=== PATIENT | female | born 1950 | race African-American/Black ===

== ENCOUNTER 2017-08-08 23:08 | Emergency (ER) | payer OTHER ==
[~2017-08-08] VITALS: Ht 162.6 cm; Wt 82.6 kg
[2017-08-08] MEDS ORDERED: ENALAPRIL MALEA10 MG ORAL (23:19)
[2017-08-08] MEDS ORDERED: METFORMIN HCL850 M1 ORAL (23:19)
[2017-08-08] MEDS ORDERED: PAXIL10 MG ORAL (23:20)
[2017-08-08 23:22] VITALS: BP 133/72
[2017-08-09] MEDS ORDERED: Ketorolac 30mg Inj IV ONE (00:15)
[2017-08-09 00:46] LABS: EOSINOPHILS % (AUTO) 1.8 % (0.0-3.0); LYMPHOCYTES % (AUTO) 14.4 % (20.0-45.0); MEAN CORPUSCULAR HEMOGLOBIN 29.9 PG (27.0-31.0); MEAN CORPUSCULAR HGB CONC 33.6 G/DL (32.0-36.0); MEAN CORPUSCULAR VOLUME 89 FL (80-99); MONOCYTES % (AUTO) 6.3 % (1.0-10.0); NEUTROPHILS % (AUTO) 76.5 % (45.0-75.0); PLATELET COUNT 337 K/UL (150-450); RED BLOOD COUNT 4.08 M/UL (4.20-5.40); RED CELL DISTRIBUTION WIDTH 12.4 % (11.6-14.8); WHITE BLOOD COUNT 11.2 K/UL (4.8-10.8)
[2017-08-09 00:54] LABS: ANION GAP 9 mmol/L (5-15); CARBON DIOXIDE 29 MMOL/L (21-32); CHLORIDE 94 MMOL/L (98-107); GLOMERULAR FILTRATION RATE > 60 mL/min (>60); POTASSIUM 4.3 MMOL/L (3.5-5.1); SODIUM 132 MMOL/L (136-145)
[2017-08-09 01:09] LABS: ALANINE AMINOTRANSFERASE 22 U/L (12-78); ALBUMIN/GLOBULIN RATIO 0.8 (1.0-2.7); ASPARTATE AMINO TRANSFERASE 25 U/L (15-37); CKMB < 0.5 NG/ML (0.0-3.6); TOTAL PROTEIN 8.3 G/DL (6.4-8.2)
[2017-08-09] MEDS ORDERED: ALBUTEROL2.5 MG/3 M HHN (01:10)
[2017-08-09] MEDS ORDERED: ACETAMINOPHEN-1 EAC1 ORAL (01:10)
[2017-08-09] MEDS ORDERED: ZITHROMAX250 MG ORAL (01:10)
[2017-08-09 01:18] VITALS: BP_SYST 133; BP_SYST 149; BP_DIAS 72; BP_DIAS 79
--- NOTE | 2017-08-10 15:11 | Emergency Room Report ---
History of Present Illness General Chief Complaint: Upper Respiratory Illness Source: Patient Present Illness HPI [id number] sent from urgent care "because my HR and BP were high and they couldnt bring it down." Patient with known "tough to control" BP on multiple medications Was at originally for 2-3 weeks of body aches, cough, headache, sore throat , nasal congestion and rhinorrhea Did not get the flu vaccine this week Had ECG done at which shows sinus tachycardia to 117 Patient denies chest pain, SOB, history of PE or ACS Allergies: Coded Allergies: No Known Allergies (Unverified , 08/08/17) Patient History Past Medical History: DM, HTN Past Surgical History: none Pertinent Family History: none Social History: Denies: smoking, alcohol use, drug use Now: No Immunizations: UTD Reviewed Nursing Documentation: PMH: Agreed, PSxH: Agreed Nursing Documentation-PMH Hx Hypertension: Yes Hx Diabetes: Yes Review of Systems All Other Systems: negative except mentioned in HPI Physical Exam Vital Signs Date Time Temp Pulse Resp B/P (MAP) Pulse Ox O2 Delivery O2 Flow Rate FiO2 08/08/17 23:13 98.6 122 14 133/72 100 Room Air Sp02 EP Interpretation: reviewed, normal General Appearance: normal inspection, well appearing, no apparent distress, alert, GCS 15, non-toxic Head: normocephalic, atraumatic Eyes: bilateral eye PERRL, bilateral eye EOMI ENT: normal ENT inspection, hearing grossly normal, normal pharynx, no angioedema, normal voice, TMs + canals normal, uvula midline, moist mucus membranes, nasal congestion, pharyngeal erythema Neck: normal inspection, full range of motion, supple, thyroid normal, no meningismus, no bony tend Respiratory: normal inspection, lungs clear, normal breath sounds, no rhonchi, no respiratory distress, no retraction, no accessory muscle use, no wheezing, speaking full sentences Cardiovascular #1: regular rate, rhythm, no edema, no JVD, normal capillary refill Gastrointestinal: normal inspection, normal bowel sounds, non tender, soft, no mass, no peritonitis, non-distended, no guarding, no hernia, no pulsatile mass Genitourinary: no CVA tenderness Musculoskeletal: normal inspection, back normal, normal range of motion, no calf tenderness, pelvis stable, Pinky's Sign negative Neurologic: normal inspection, alert, oriented x3, responsive, extrusion bender III-XII nml as tested, motor strength/tone normal, cerebellar normal, normal gait, speech normal Psychiatric: normal inspection, judgement/insight normal, mood/affect normal, no suicidal/homicidal ideation, no delusions Skin: normal inspection, normal color, no rash Lymphatic: normal inspection, no adenopathy Medical Decision Making Diagnostic Impression: Primary Impression: Upper respiratory infection Qualified Codes: J06.9 - Acute upper respiratory infection, unspecified Additional Impression: Hypertension Qualified Codes: I10 - Essential (primary) hypertension ER Course Patient has all the symptoms of a viral URI, possibly flu However is well appearing - symptoms have been ongoing for 2-3 weeks She just sought medical attention today Labs unremarkabke - mild leuks likely viral Pharynx with erythema likely from nasal congestion - no sign of bacterial strep Lungs CTAB ECG here also sinus tachycardia but troponin WNL BP is within normal limits here HR better with IVF, pain control ER course: Patient has remained stable during ED stay. Patient is to be discharged to home. Patient is instructed to follow up with their primary care doctor within 5 days. Patient is instructed to follow up with *specialist within 3 days. Strict return precautions discussed with patient such as fever, chills, worsening/severe pain, nausea, vomiting, which may indicate severe illness. Patient verbalizes understanding and agrees with plan. Please note that this Emergency Department Report was dictated using [email or web address] power unit operator technology software, occasionally this can lead to erroneous entry secondary to interpretation by the dictation equipment Last Vital Signs Date Time Temp Pulse Resp B/P (MAP) Pulse Ox O2 Delivery O2 Flow Rate FiO2 08/09/17 01:18 98.6 113 14 149/79 100 Room Air Status: improved Disposition: HOME, SELF-CARE Condition: Improved Scripts Albuterol Sulfate* (ALBUTEROL SULFATE HHN*) 2.5 Mg/3 Ml Vial.neb 2.5 MG HHN Q4H Y for cough, SOB, #25 VIAL Prov: REUBEN WEBB M.D. 08/09/17 Acetaminophen With Codeine (T#3) (TYLENOL #3 TAB*) Y Tab 1 TAB ORAL Q8H for 7 Days, #30 TAB Prov: REUBEN WEBB M.D. 08/09/17 Azithromycin* (ZITHROMAX*) 250 Mg Tablet 250 MG ORAL DAILY, #6 TAB 0 Refills Take two tables once daily for 1 day, then one tablet once daily for 4 days. Prov: REUBEN WEBB M.D. 08/09/17 [facility] Patient Instructions: Upper Respiratory Infection, Adult REUBEN WEBB M.D. Aug 10, 2017 15:11
--- NOTE | 2017-08-11 00:25 | Cardiology Report ---
APPROVED REPORT EKG Measurement Heart [id number] Sinus tachycardia Possible Left atrial enlargement Nonspecific ST abnormality Abnormal ECG
== END 2017-08-09 01:18 | disposition home or self-care (01) ==
LOC: EMR 23:27
DX: J06.9 Acute upper respiratory infection, unspecified (principal); I10 Essential (primary) hypertension; E11.9 Type 2 diabetes mellitus without complications
CPT/HCPCS: 36415; 80053; 82550; 82553; 84484; 85025; 93005; 96361; 96374; 99284; J1885